=== PATIENT | female | born 1945 | race Caucasian/White ===

== ENCOUNTER → 2016-12-30 | Outpatient (CLI) | payer MEDICARE, OTHER ==
[2016-12-30 14:13] LABS: HEMOGLOBIN 11.6 gm/dl (12.3-15.3); RED BLOOD COUNT 4.14 M/UL (4.00-5.10); WHITE BLOOD COUNT 5.2 K/UL (4.5-11.0)
[2016-12-30 14:21] LABS: BUN/CREATININE RATIO 28 (0-10)
== END ==
LOC: LAB 13:35
PROVIDERS: Internal Medicine Gastroenterology
DX: K76.89 Other specified diseases of liver (principal); D64.9 Anemia, unspecified
CPT/HCPCS: 36415; 80053; 85027; 85610

== ENCOUNTER → 2017-01-12 | Outpatient (CLI) | payer MEDICARE, OTHER | LOC: RAD 12:40 | DX: R05 Cough (principal) | CPT/HCPCS: 71020 ==

== ENCOUNTER → 2021-05-26 | Outpatient (CLI) | payer MEDICARE, OTHER | LOC: EXRD 05-11 09:00 | DX: E04.1 Nontoxic single thyroid nodule (principal); K76.89 Other specified diseases of liver | CPT/HCPCS: 76536; 76700 ==

== ENCOUNTER → 2021-09-21 | Outpatient (CLI) | payer MEDICARE, OTHER | LOC: KOH-I 12:38 | DX: R69 Illness, unspecified (principal) | CPT/HCPCS: 71046 ==

== ENCOUNTER → 2022-03-04 | Outpatient (CLI) | payer MEDICARE, OTHER | LOC: LAB 15:15 | DX: Z20.822 Contact with and (suspected) exposure to COVID-19 (principal) | CPT/HCPCS: U0003 ==

== ENCOUNTER → 2022-05-24 | Outpatient (CLI) | payer MEDICARE, OTHER | LOC: KOH-I 05-11 10:00 | DX: E04.2 Nontoxic multinodular goiter (principal); K76.89 Other specified diseases of liver | CPT/HCPCS: 76536; 76700 ==